=== PATIENT | male | born 1925 | race Caucasian/White ===

== ENCOUNTER 2017-03-17 10:03 | Inpatient (IN) | payer BC, OTHER ==
[~2017-03-17] VITALS: Ht 177.8 cm; Wt 72.8 kg
--- NOTE | ~2017-03-17 | EKG ---
[address] [address] ELECTROCARDIOGRAM REPORT Name: SWAPNA PEDRAZA Room #: 201-P DIS IN M.R.#: [id number] Admission: 03/17/17 Attend Phys: Taran Artis MD, Discharge: 03/19/17 Date of : [birth year] Report #: [id number] THIS REPORT FOR: //name// [facility] Test Date: 2017-03-18 Test Time: 06:54:58 Pat Name: SWAPNA PEDRAZA Department: Room: 201 P Gender: M Fruit Raiser: chapito : 1925 Requested By: Li Pelletier Order Number: [id number] MD: Erik Matthews Measurements Intervals [place] Rate: 87 P: [place]: QRS: -61 QRSD: 94 T: 32 QT: 413 QTc: 497 Interpretive Statements Atrial fibrillation Inferior infarct, old Anterior infarct, old Compared to ECG 03/17/2017 12:34:36 Ventricular premature complex(es) no longer present Electronically Signed On 03-20-2017 7:38:41 RECOVERY AGENT by Erik Matthews [email or web address] <ELECTRONICALLY SIGNED> By: Erik Matthews MD, [facility] 03/20/17 0738 [id number] Erik Matthews MD, [facility] /EPI
--- NOTE | ~2017-03-17 | 2DMMODE ---
[address] [address] 2 D/M-MODE ECHOCARDIOGRAM Name: MILOSWAPNA RAMIREZ Room #: 201-P [facility] IN M.R.#: [id number] Admission: 03/17/17 Attend Phys: Taran Artis, Discharge: Date of : [birth year] Date of Service: 03/18/17 1028 Report #: [id number] THIS REPORT FOR: //name// APPROVED REPORT Study performed: 03/18/2017 09:57:25 EXAM: Comprehensive 2D, Doppler, and color-flow Echocardiogram Patient Location: Bedside Room #: 201 Status: routine BSA: 1.91 HR: 80 bpm BP: 132/72 mmHg Other Information Study Quality: Good Indications Congestive Heart Failure Diabetes Atrial Fibrillation Hypertension/HDD 2D Dimensions IVC: 31.00 mm Tricuspid Valve TR Peak Trey.: 2.73 m/s TR Peak Gr.: 29.87 mmHg PA Pressure: 45.00 mmHg Left Ventricle The left ventricle is normal size. Mild concentric left ventricular hypertrophy. Left ventricular systolic function is mild to moderately decreased. LVEF is 35-40%. Right Ventricle The right ventricle is normal size. The right ventricular systolic function is normal. Atria Left atrium is dilated. Right atrium is dilated. Aortic Valve [address] [address] 2 D/M-MODE ECHOCARDIOGRAM Name: SWAPNA PEDRAZA Room #: 201-P ADM IN M.R.#: [id number] Admission: 03/17/17 Attend Phys: Taran Artis, Discharge: Date of : [birth year] Date of Service: 03/18/17 1028 Report #: [id number] The aortic valve is normal in structure. Mitral Valve The mitral valve is normal in structure. Mild to moderate mitral regurgitation. Tricuspid Valve The tricuspid valve is normal in structure. There is moderate to severe tricuspid regurgitation. Estimated PAP 45 mmHg. There is moderate pulmonary hypertension. Pulmonic Valve Pulmonic valve is not well visualized. Great Vessels The aortic root is normal in size. The inferior vena cava is dilated with no inspiratory collapse. Pericardium There is no pericardial effusion. <Conclusion> The left ventricle is normal size. Mild concentric left ventricular hypertrophy. Left ventricular systolic function is mild to moderately decreased. LVEF is 35-40%. The right ventricle is normal size. Left atrium is dilated. Right atrium is dilated. Mild to moderate mitral regurgitation. The aortic valve is normal in structure. The inferior vena cava is dilated with no inspiratory collapse. There is no pericardial effusion. There is moderate to severe tricuspid regurgitation. Estimated PAP 45 mmHg. There is moderate pulmonary hypertension. <ELECTRONICALLY SIGNED> By: Taran Artis MD, FAC 03/18/17 1028 1028 1028 Taran Artis MD, FACC /INF
--- NOTE | ~2017-03-17 | EKG ---
[address] [address] ELECTROCARDIOGRAM REPORT Name: SWAPNA PEDRAZA Room #: 201-P ADM IN M.R.#: [id number] Admission: 03/17/17 Attend Phys: Taran Artis MD, Discharge: Date of : [birth year] Report #: [id number] THIS REPORT FOR: //name// [facility] Test Date: 2017-03-17 Test Time: 12:34:36 Pat Name: SWAPNA PEDRAZA Department: Room: 201 P Gender: M [employer] Functional Analyst: tye : 1925 Requested By: Taran Artis Order Number: [id number] MD: Valerio Ramirez Measurements Intervals [place] Rate: 125 P: AR: QRS: -66 QRSD: 96 T: 61 QT: 347 QTc: 501 Interpretive Statements Atrial fibrillation Ventricular premature complex Inferior infarct, old Anterior infarct, old Electronically Signed On 03-17-2017 14:35:32 RESEARCH ANIMAL ATTENDANT by Valerio Ramirez [email or web address] <ELECTRONICALLY SIGNED> By: Valerio Ramirez MD 03/17/17 1435 1234 1234 Valerio Ramirez MD /[place]
[~2017-03-17 10:03] MED LIST: CHOLESTEROL MED; LEVOTHYROXIN0.025 MG; LUMIGAN2.5 M1
[2017-03-17 12:00] VITALS: BP 123/87
[2017-03-17 12:31] LABS: HEMATOCRIT 47.3 % (42.0-52.0); HEMOGLOBIN 15.7 gm/dL (14.0-18.0); MCH 29.5 pg (26.0-34.0); MCHC 33.2 g/dL (28.0-37.0); MCV 88.8 fL (80.0-100.0); RBC 5.33 mil/uL (4.50-6.00); WBC 8.7 thou/uL (4.0-11.0)
[2017-03-17 12:42] LABS: CALCIUM 9.7 mg/dL (8.5-10.1); CREATININE 1.3 mg/dL (0.7-1.3); POTASSIUM 4.3 mmol/L (3.5-5.1)
[2017-03-17] MEDS ORDERED: SYNTHROID100 MCG PO (13:18)
[2017-03-17] MEDS ORDERED: LASIX 40 MG TAB40 M2 PO (13:18)
[2017-03-17] MEDS ORDERED: ELIQUIS2.5 MG PO (13:18)
[2017-03-17] MEDS ORDERED: LIPITOR40 MG PO (13:18)
[2017-03-17] MEDS ORDERED: TOPROL XL25 MG PO (13:20)
[2017-03-17] MEDS ORDERED: POTASSIUM20 (13:20)
[2017-03-17 15:06] LABS: ALBUMIN 3.5 g/dL (3.4-5.0); PHOSPHORUS 3.7 mg/dL (2.5-4.9)
[2017-03-17 16:15] VITALS: BP 107/67
[2017-03-17 19:47] VITALS: BP 124/88
[2017-03-18 02:51] LABS: ALBUMIN 2.7 g/dL (3.4-5.0); CALCIUM 9.2 mg/dL (8.5-10.1); CREATININE 1.2 mg/dL (0.7-1.3); PHOSPHORUS 3.2 mg/dL (2.5-4.9); POTASSIUM 4.2 mmol/L (3.5-5.1)
[2017-03-18 03:45] VITALS: BP 132/72
[2017-03-18 07:25] VITALS: BP 146/85
[2017-03-18 11:15] VITALS: BP 128/83
[2017-03-18 15:30] VITALS: BP 121/67
[2017-03-18] MEDS ORDERED: CARDIZEM CD180 MG PO (15:40)
[2017-03-18] MEDS ORDERED: DEMADEX20 MG PO (15:40)
[2017-03-18] MEDS ORDERED: K-DUR 20 MEQ T20 MEQ PO (15:40)
[2017-03-18 19:17] VITALS: BP 121/71
[2017-03-19 02:56] VITALS: BP 128/90
[2017-03-19 03:46] LABS: ALBUMIN 2.5 g/dL (3.4-5.0); PHOSPHORUS 3.2 mg/dL (2.5-4.9); POTASSIUM 3.4 mmol/L (3.5-5.1)
[2017-03-19 07:07] VITALS: BP 133/84
[2017-03-19 08:41] VITALS: BP 133/84
== END 2017-03-19 10:30 | disposition home or self-care (01) | DRG 308 ==
LOC: 2N 10:03 → ENTRNSPT 03-19 10:02 → EDTRNSPTSTS 03-19 10:04 → 2N 03-19 10:30
PROVIDERS: Nurse Practitioner Adult Health
DX: I48.0 Paroxysmal atrial fibrillation (principal); I50.23 Acute on chronic systolic (congestive) heart failure; I25.10 Atherosclerotic heart disease of native coronary artery without angina pectoris; I11.0 Hypertensive heart disease with heart failure; E78.00 Pure hypercholesterolemia, unspecified; E03.9 Hypothyroidism, unspecified; E11.9 Type 2 diabetes mellitus without complications
CPT/HCPCS: 10797